=== PATIENT | male | born 1990 | race Caucasian/White ===

== ENCOUNTER 2023-10-22 18:24 | Emergency (ER) | payer OTHER ==
[~2023-10-22] VITALS: Ht 175.3 cm; Wt 126.0 kg
[2023-10-22 18:45] LABS: BASOPHILS 0.7 % (0-2); EOSINOPHILS 3.2 % (0-6); HEMOGLOBIN 15.7 g/dL (12.0-18.0); LYMPHOCYTES 40.6 % (24-44); MCH 28.5 (27-36); MCHC 34.8 g/dl (30-36); MONOCYTES 7.8 % (0-12); NEUTROPHILS 47.7 % (39-80); PLATELET COUNT 291 K/uL (140-440); RBC 5.49 M/ul (4.3-5.7); RDW 13.7 (10.5-15.0)
[2023-10-22 18:53] LABS: ALBUMIN 4.3 g/dL (3.4-5.0); ALBUMIN/GLOBULIN RATIO 1.13 (1.1-2.4); ANION GAP 12.8 (7-21); BILIRUBIN, TOTAL 0.3 ng/dL (0.2-1.0); BUN/CREATININE RATIO 12.6 (6.0-28.6); CALCIUM 9.1 mg/dL (8.5-10.1); CREATININE, SERUM 1.19 mg/dL (0.70-1.30); POTASSIUM 3.8 mmol/L (3.5-5.1); PROTEIN, TOTAL 8.1 g/dL (6.4-8.2)
[2023-10-22 22:35] LABS: BILIRUBIN, URINE NEGATIVE (negative); BLOOD/HGB, URINE NEGATIVE (Negative); KETONE, URINE NEGATIVE (Negative); LEUK ESTERASE, URINE NEGATIVE (negative); NITRITE, URINE NEGATIVE (negative); PH, URINE 5.5 (5-7)
[2023-10-22] MEDS ORDERED: PROTONIX40 MG PO (23:02)
[2023-10-22] MEDS ORDERED: HYDROCODON-ACE1 EA10 PO (23:02)
[2023-10-22 23:19] VITALS: BP 128/89
--- NOTE | 2023-10-23 18:00 | EKG ---
[facility] [address] [place], [place] [address] Signed Normal sinus rhythm with sinus arrhythmia Right bundle branch block Possible Inferior infarct , age undetermined T wave abnormality, consider lateral ischemia Abnormal ECG No previous ECGs available Confirmed by BERNADETTE PALOMO MD ([id number]) on 10/23/2023 6:00:34 PM Electronically Signed By: BERNADETTE PALOMO 10/23/23 1800 PATIENT NAME: RAINER ESCOBEDO ARIANA Electrocardiogram DATE OF : 89 PHYSICIAN: BERNADETTE PALOMO REPORT #: [id number] REPORT IS CONFIDENTIAL AND NOT TO BE RELEASED WITHOUT AUTHORIZATION
== END 2023-10-22 23:15 | disposition home or self-care (01) ==
LOC: ED 18:24
PROVIDERS: Emergency Medicine
DX: R10.11 Right upper quadrant pain (principal); I45.10 Unspecified right bundle-branch block
CPT/HCPCS: 36415; 71045; 74177; 76705; 80053; 81003; 83690; 84484; 85025; 85379; 93005; 93010; A9270; J1170; J1885; J7030; Q9967